=== PATIENT | female | born 1985 | race Caucasian/White ===

== ENCOUNTER 2024-09-27 19:22 | Inpatient (IN) | payer BC ==
--- NOTE | 2024-09-27 20:09 | RAD REPORT ---
EXAM: CT brain without contrast HISTORY: Blurred vision COMPARISON: None TECHNIQUE: Multiple contiguous axial images were obtained and a CT of the brain without contrast. Sagittal and coronal reformats were performed. Automated exposure control, adjustment of the mA and/or kV according to patient size, and/or itera tive reconstruction. Unless otherwise specified, incidental findings do not require dedicated imaging follow-u FINDINGS: An intracranial bleed is not seen Ventricles are normal caliber No extra-axial fluid collection noted Vague low density within the right and left occipital lobes. No fluid within the visualized sinuses or mastoids noted. IMPRESSION: Vague low density within the occipital lobes bilaterally. It is uncertain if these represent infarcti ons or artifact. MRI brain is recommended. from the emergency room was notified at 8:03 PM September 27, 2024
--- NOTE | 2024-09-27 20:47 | RAD REPORT ---
EXAMINATION: CTA HEAD CLINICAL INDICATION: Aphasia TECHNIQUE: Axial CT images were obtained through the head after 100 cc Isovue-370 intravenous contras t utilizing angiographic protocol with 3D post-processing (maximum intensity projection images, volume rendered images and/or shaded surface rendered images). One or more of the following dose red uction techniques were used: Automated exposure control, adjustment of the mA and/or kV according to patient size, and/or iterative reconstruction. Unless otherwise specified, incidental findings do not require dedicated imaging follow-up. COMPARISON: None FINDINGS: Distal internal carotid, basilar, anterior cerebral, middle cerebral and posterior cerebral arteries do not demonstrate a significant stenosis An aneurysm not noted. No large vessel occlusion IMPRESSION: No acute vascular abnormality displayed
[2024-09-27 20:48] LABS: Absolute Eosinophils 0.1 K/uL (0-0.5); Absolute Lymphocytes (CBC) 3.2 K/uL (0.7-4.9); Absolute Monocytes 0.6 K/uL (0.1-1.3); Absolute Neutrophil 5.5 K/uL (1.8-8.0); Basophils % 0.3 % (0-1.3); Eosinophils % 0.9 % (0-4.4); Hematocrit 33.3 % (36.0-45.0); Hemoglobin 10.6 g/dL (12.0-15.0); MCH 23.3 pg (27.0-35.0); MCHC 31.9 g/dL (32.0-36.0); MCV 72.9 fL (80-100); MPV 7.7 fL (7.6-11.3); Monocytes % 6.3 % (3.3-12.3); Neutrophils % 58.5 % (41.7-73.7); Platelets 366 thou/uL (152-406); RBC Red Blood Cell Count 4.57 M/uL (3.86-4.86)
--- NOTE | 2024-09-27 20:51 | RAD REPORT ---
EXAMINATION: Neck Angio CLINICAL INDICATION: aphasia TECHNIQUE: Axial CT images were obtained from the aortic arch to the skull base after intravenous adm inistration of 100 cc Isovue-370 utilizing angiographic protocol. Multiplanar reformats, as well as 3D post-processing (maximum intensity projection images, volume rendered images and/or shaded surface rendered images) were generated and reviewed. One or more of the following dose reduction techniques were used: Automated exposure control, adjustment of the mA and/or kV according to patient size, and/or iterative reconstruction. Unless otherwise specified, incidental findings do not require dedicated imaging follow-up. COMPARISON: No prior exam. FINDINGS: The visualized aortic arch and great vessels do not demonstrate a significant abnormality Common carotid, internal carotid and external carotid arteries bilaterally appear unremarkable. Vertebral arteries appear unremarkable No significant stenosis noted. A dissection is not seen. Methods for NASCET criteria: Mild stenosis, 0% to 49%; Moderate stenosis 50% to 69%; Severe stenosis, 70% to 99% IMPRESSION: No acute vascular abnormality displayed
[2024-09-27 21:00] LABS: PT Prothrombin Time 11.6 SECONDS (9.4-12.5); PTT, Activated Partial Thromb 26.4 SECONDS (24.3-36.9); Protime INR 1.04
[2024-09-27 21:07] LABS: Anion Gap 9.3 mEq/L (5.0-15.0); BUN Blood Urea Nitrogen 11 mg/dL (7-18); Bicarbonate 23 mEq/L (21-32); Glomerular Filtration Rate 115 ml/min (=/>90); Glucose Level 104 mg/dL (74-106); Potassium 3.3 mEq/L (3.5-5.1); Sodium Level 137 mEq/L (136-145)
--- NOTE | 2024-09-27 21:15 | RAD REPORT ---
Procedure: Chest Single View HISTORY: CVA COMPARISON: 2002 FINDINGS: The lungs appear clear of acute infiltrate. No significant pleural effusion noted. The heart is normal size. IMPRESSION: No acute abnormality is displayed.
[2024-09-27 21:46] LABS: Troponin High Sensitivity < 3.0 pg/mL (<58.9)
--- NOTE | 2024-09-27 22:29 | ER ---
Nurse's Notes [facility] Name: Iman Cunningham Age: 38 yrs Sex: Female : 1985 Arrival Date: 09/27/2024 Time: 19:22 Bed 14 Private MD: Diagnosis: Transient Ischemic Attack , acute aphasia, acute tunnel vision;Paresthesia of skin Presentation: 09/27 19:43 Chief complaint: Patient states: "Last night at work I started getting blurry tunnel vc1 vision, I could see straight ahead but my peripheral was blurry. I couldn't speak, I new what I was trying to say but the words wouldn't come out. Then my lips got tingly. Those went away but I have had a headache ever since. It gets worse if I cough or bend over. I still have to kind of think about what I am going to say". Coronavirus screen: Client denies travel out of the [place] in the last 14 days. At this time, the client does not indicate any symptoms associated with coronavirus-19. Ebola Screen: Patient negative for fever greater than or equal to 101.5 degrees Fahrenheit, and additional compatible Ebola Virus Disease symptoms Patient denies exposure to infectious person. Patient denies travel to an Ebola-affected area in the 21 days before illness onset. No symptoms or risks identified at this time. Initial Sepsis Screen: Does the patient meet any 2 criteria? No. Patient's initial sepsis screen is negative. Does the patient have a suspected source of infection? No. Patient's initial sepsis screen is negative. Risk Assessment: Do you want to hurt yourself or someone else? Patient reports no desire to harm self or others. Onset of symptoms was September 26, 2024. Care prior to arrival: None. Activity prior to arrival: None. Mechanism of Injury: No Mechanism of Injury. Transition of care: patient was not received from another setting of care. 19:43 Method Of Arrival: Ambulatory vc1 19:43 Acuity: KILEY 2 vc1 Triage Assessment: 19:49 Headache History: The patient has had previous headaches and this one is different than vc1 previous episodes, and this one is more severe than previous episodes. General: Appears in no apparent distress. comfortable, slender, well groomed, well developed, well nourished, Behavior is calm, cooperative, appropriate for age. Pain: Complains of pain in left temporal area Pain does not radiate. Pain currently is 3 out of 10 on a pain scale. at worst was 6 out of 10 on a pain scale. Quality of pain is described as pressure, Pain began suddenly, last night with blurred vision, tingling of lips and unable to speak Is lasting a few minutes. Also complains of inability to perform activities of daily living. EENT: No deficits noted. No signs and/or symptoms were reported regarding the EENT system. Neuro: Ham Agitation-Sedation Scale (RASS): 0 - Alert and Calm Level of Consciousness is awake, alert, obeys commands, Oriented to person, place, time, situation, Appropriate for age [employer] are equal bilaterally Moves all extremities. Gait is steady, Speech is normal, Facial symmetry appears normal, Pupils are PERRLA, Reports headache in left parietal area, since last night. Cardiovascular: Capillary refill < 3 seconds Patient's skin is warm and dry. Respiratory: Airway is patent Respiratory effort is even, unlabored, Respiratory pattern is regular, symmetrical. GI: Abdomen is flat, non-distended. : No deficits noted. No signs and/or symptoms were reported regarding the genitourinary system. Derm: Skin is intact, is healthy with good turgor, Skin is dry, Skin is normal, Skin temperature is warm. Musculoskeletal: Circulation, motion, and sensation intact. Range of motion: intact in all extremities. 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 - Infectious Disease History:: Denies. - Social history:: Smoking status: Patient denies any tobacco usage or history of. - Family history:: not pertinent. Screenin:49 [facility] ED Fall Risk Assessment (Adult) History of falling in the last 3 months, vc1 including since admission No falls in past 3 months (0 pts) Confusion or Disorientation No (0 pts) Intoxicated or Sedated No (0 pts) Impaired Gait No (0 pts) Mobility Assist Device Used No (0 pt) Altered Elimination No (0 pt) Score/Fall Risk Level 0 - 2 = Low Risk Oriented to surroundings, Maintained a safe environment, Educated pt \\T\\ family on fall prevention, incl call for assistance when getting out of bed. Abuse screen: Denies threats or abuse. Nutritional screening: No deficits noted. Tuberculosis screening: No symptoms or risk factors identified. Assessment: 19:30 VAN Scoring: Arm Drift: Patients demonstrates NO arm weakness. Patient is VAN Negative. jb4 Visual Disturbance: No visual disturbance noted. Bandon Swallow Protocol Exclusion Criteria: Exclusion Criteria Result: Proceed Brief Cognitive Screen What is your name? Normal, Where are you right now? Normal, What year is it? Normal. Oral Mechanism Examination Facial Symmetry: Normal, Motion: Normal, Lip Closure: Normal, Oral Mechanism Result: Normal. 3 oz Water Swallow Challenge: Pt able to drink all water without stopping, coughing, choking or throat clearing: Yes Result: PASS MD Notified: Santy Preston MD. General: Appears in no apparent distress. comfortable, Behavior is calm, cooperative, appropriate for age. Pain: Complains of pain in headache Pain does not radiate. Pain currently is 3 out of 10 on a pain scale. Neuro: Level of Consciousness is awake, alert, obeys commands, Oriented to person, place, time, situation, Moves all extremities. Full function Speech is normal, Facial symmetry appears normal, Pupils are PERRLA, Pt reports having to focus more than usual to try and say what she wants to say. Cardiovascular: Patient's skin is warm and dry. Respiratory: Airway is patent Respiratory effort is even, unlabored, Respiratory pattern is regular, symmetrical. Derm: Skin is intact, Skin is pink, warm \\T\\ dry. Musculoskeletal: Circulation, motion, and sensation intact. Range of motion: intact in all extremities. 20:30 Reassessment: Patient appears in no apparent distress at this time. Patient and/or jb4 family updated on plan of care and expected duration. Pain level reassessed. Patient is alert, oriented x 3, equal unlabored respirations, skin warm/dry/pink. 21:30 Reassessment: Patient appears in no apparent distress at this time. Patient and/or jb4 family updated on plan of care and expected duration. Pain level reassessed. Patient is alert, oriented x 3, equal unlabored respirations, skin warm/dry/pink. Pt reports the feeling of "Brain Fog" is getting better and it is getting easier to talk. 22:30 Reassessment: Patient appears in no apparent distress at this time. Patient and/or jb4 family updated on plan of care and expected duration. Pain level reassessed. Patient is alert, oriented x 3, equal unlabored respirations, skin warm/dry/pink. 23:24 Reassessment: Patient appears in no apparent distress at this time. Patient and/or jb4 family updated on plan of care and expected duration. Pain level reassessed. Patient is alert, oriented x 3, equal unlabored respirations, skin warm/dry/pink. Vital Signs: 19:43 BP 129 / 95; Pulse 108; Resp 14; Temp 99.2; Pulse Ox 100% ; Weight 51.26 kg; Height 5 vc1 ft. 0 in. ; Pain 3/10; 19:43 Body Mass Index 22.07 (51.26 kg, 152.4 cm) vc1 19:43 Pain Scale: Adult vc1 Orion Coma Score: 22:17 Eye Response: spontaneous(4). Motor Response: obeys commands(6). Verbal Response: sp4 oriented(5). Total: 15. 22:30 Eye Response: spontaneous(4). Motor Response: obeys commands(6). Verbal Response: sp4 oriented(5). Total: 15. NIH Stroke Scale Scores: 19:30 NIHSS Score: 0 jb4 22:17 NIHSS Score: 0 sp4 ED Course: 19:26 Patient arrived in ED. im 19:47 Evan Zamora, RN is Primary Nurse. jb4 19:47 Triage completed. vc1 19:49 Arm band placed on right wrist. vc1 19:53 Patient has correct armband on for positive identification. Bed in low position. Call vc1 light in reach. Pulse ox on. NIBP on. 19:58 CT Stroke Brain w/o Contrast In Process Unspecified. EDMS 20:04 Santy Preston MD is Attending Physician. sp4 20:08 Note: pt not escorted by nurse to CT, IV started by nail technician teacher. labs drawn by nail technician teacher at vm2 20:07. 20:14 CT Head Angio In Process Unspecified. EDMS 20:14 CT Neck Angio In Process Unspecified. EDMS 20:56 Stroke CXR 1 View In Process Unspecified. EDMS 22:28 Nikhil Ely MD is Hospitalizing Provider. sp4 09/28 03:15 Patient admitted, IV remains in place. rg5 03:16 Provided Education on: need for admit. rg5 03:16 No provider procedures requiring assistance completed. rg5 06:58 Primary Nurse role handed off by Evan Zamora, RN bp 06:58 Jone Prado, JARED is Primary Nurse. bp Administered Medications: No medications were administered Medication: 09/27 19:53 VIS not applicable for this client. vc1 Outcome: 22:28 Decision to Hospitalize by Provider. sp4 09/28 03:16 Admitted to ER Hold. [facility]. rg5 Condition: stable Instructed on the need for admit, 07:49 Patient left the ED. bp NIH Stroke Scale - NIH Stroke Score Date: 09/27/2024 Time: 19:30 Total Score = 0 10. Dysarthria (speech clarity - read or repeat words) - 0(Normal) 11. Extinction and Inattention (visual/tactile/auditory/spatial/personal) - 0(No abnormality) 1a. Level of Consciousness (LOC) - 0(Alert) 1b. Level of Consciousness (LOC) (Month \\T\\ Age) - 0(Both) 1c. LOC Commands (Open \\T\\ Closes Eyes/Residence Hall Director) - 0(Both) 2. Best Gaze (Lateral Gaze Paresis) - 0(Normal) 3. Visual Field Loss - 0(No visual loss) 4. Facial Palsy - 0(Normal) 5a. Left Arm: Motor (10-second hold) - 0(No drift) 5b. Right Arm: Motor (10-second hold) - 0(No drift) 6a. Left Leg: Motor (5-second hold - always test supine) - 0(No drift) 6b. Right Leg: Motor (5-second hold - always test supine) - 0(No drift) 7. Limb Ataxia (finger/nose \\T\\ heel/bates - test with eyes open) - 0(Absent) 8. Sensory Loss (pinprick arms/legs/face) - 0(Normal) 9. Best Language: Aphasia (description/naming/reading) - 0(No aphasia) Initials: [email or web address] NIH Stroke Scale - NIH Stroke Score Date: 09/27/2024 Time: 22:17 Total Score = 0 10. Dysarthria (speech clarity - read or repeat words) - 0(Normal) 11. Extinction and Inattention (visual/tactile/auditory/spatial/personal) - 0(No abnormality) 1a. Level of Consciousness (LOC) - 0(Alert) 1b. Level of Consciousness (LOC) (Month \\T\\ Age) - 0(Both) 1c. LOC Commands (Open \\T\\ Closes Eyes/Residence Hall Director) - 0(Both) 2. Best Gaze (Lateral Gaze Paresis) - 0(Normal) 3. Visual Field Loss - 0(No visual loss) 4. Facial Palsy - 0(Normal) 5a. Left Arm: Motor (10-second hold) - 0(No drift) 5b. Right Arm: Motor (10-second hold) - 0(No drift) 6a. Left Leg: Motor (5-second hold - always test supine) - 0(No drift) 6b. Right Leg: Motor (5-second hold - always test supine) - 0(No drift) 7. Limb Ataxia (finger/nose \\T\\ heel/bates - test with eyes open) - 0(Absent) 8. Sensory Loss (pinprick arms/legs/face) - 0(Normal) 9. Best Language: Aphasia (description/naming/reading) - 0(No aphasia) Initials: sp4 Signatures: Dispatcher [employer] EDEvan Rivera, RN RN jb4 Caterina Ovalles 2 Jone Prado, RN RN bp Nancie Davis RN RN vc1 Santy Preston MD MD sp4 Audra Bynum Rommel, RN RN rg5
--- NOTE | 2024-09-27 22:30 | EDPHYS ---
Physician Documentation [facility] Name: Iman Cunningham Age: 38 yrs Sex: Female : 1985 Arrival Date: 09/27/2024 Time: 19:22 Bed 14 Private MD: ED Physician Santy Preston HPI: 09/27 20:04 This 38 yrs old Female presents to ER via Ambulatory with complaints of mini sp4 stroke, Headache. 22:18 38-year-old female presents with acute onset of tunnel vision, and reported aphasia sp4 last night 9:46 PM, also difficulty getting her words out. Reported as well paresthesias around the lips. At this time also reported brain fog. Patient reports she cannot think clearly. This has never happened in the past. Patient does not have any history of medical problems has history of 4 C-sections history of bilateral tubal ligation 3 years ago. Currently not on control not on any dietary supplement. . 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 - Infectious Disease History:: Denies. - Social history:: Smoking status: Patient denies any tobacco usage or history of. - Family history:: not pertinent. ROS: 22:18 Constitutional: Negative for fever, chills, and weight loss, positive for episode of sp4 aphasia, tunnel vision, positive for brain fog, positive for paresthesias. 22:18 All other systems are negative, Exam: 22:17 Constitutional: This is a well developed, well nourished patient who is awake, alert, sp4 and in no acute distress. Head/Face: Normocephalic, atraumatic. Eyes: Pupils equal round and reactive to light, extra-ocular motions intact. Lids and lashes normal. Conjunctiva and sclera are not injected. Cornea within normal limits. Periorbital areas with no swelling, redness, or edema. ENT: Nares patent. No nasal discharge, no septal abnormalities noted. Tympanic membranes are normal and external auditory canals are clear. Oropharynx with no redness, swelling, or masses, exudates, or evidence of obstruction, uvula midline. Mucous membranes moist. Neck: Trachea midline, no thyromegaly or masses palpated, and no cervical lymphadenopathy. Supple, full range of motion without nuchal rigidity, or vertebral point tenderness. Chest/axilla: Normal chest wall appearance and motion. Nontender with no deformity. No lesions are appreciated. Cardiovascular: Regular rate and rhythm with a normal S1 and S2. No gallops, murmurs, or rubs. Normal PMI, no JVD. No pulse deficits. Respiratory: Lungs have equal breath sounds bilaterally, clear to auscultation and percussion. No rales, rhonchi or wheezes noted. No increased work of breathing, no retractions or nasal flaring. Abdomen/GI: Soft, with normal bowel sounds. No distension or tympany. No guarding or rebound. No evidence of tenderness throughout. Back: No spinal tenderness. No costovertebral tenderness. Skin: Warm, dry with normal turgor. Normal color with no rashes, no lesions, and no evidence of cellulitis. MS/ Extremity: Pulses equal, no cyanosis. Neurovascular intact. Full, normal range of motion. Neuro: Awake and alert, GCS 15, oriented to person, place, time, and situation. Cranial nerves II-XII grossly intact. Motor strength 5/5 in all extremities. Sensory grossly intact. Psych: Awake, alert, with orientation to person, place and time. Behavior, mood, and affect are within normal limits 22:18 ECG was reviewed by the Attending Physician. EKG 2039 normal sinus rhythm, normal EKG sp4 Vital Signs: 19:43 BP 129 / 95; Pulse 108; Resp 14; Temp 99.2; Pulse Ox 100% ; Weight 51.26 kg; Height 5 vc1 ft. 0 in. ; Pain 3/10; 19:43 Body Mass Index 22.07 (51.26 kg, 152.4 cm) vc1 19:43 Pain Scale: Adult vc1 NIH Stroke Scale Scores: 19:30 NIHSS Score: 0 jb4 22:17 NIHSS Score: 0 sp4 Orion Coma Score: 22:17 Eye Response: spontaneous(4). Motor Response: obeys commands(6). Verbal Response: sp4 oriented(5). Total: 15. 22:30 Eye Response: spontaneous(4). Motor Response: obeys commands(6). Verbal Response: sp4 oriented(5). Total: 15. MDM: 20:06 Medical Screening Exam initiated sp4 22:30 Differential diagnosis: cluster headache, cerebral vascular accident, migraine, sp4 subdural hematoma, tension headache, vasomotor headache. Data reviewed: vital signs, nurses notes, old medical records, lab test result(s), EKG, radiologic studies. Consideration of Admission/Observation Patient was admitted/placed on observation. Escalation of care including admission/observation considered. Management of patient was discussed with the following: Hospitalist: Solis MATTHEWS . 3Rd Mate: Terri MATTHEWS . ED course: Procedure: Chest Single View HISTORY: CVA COMPARISON: 2002 FINDINGS: The lungs appear clear of acute infiltrate. No significant pleural effusion noted. The heart is normal size. IMPRESSION: No acute abnormality is displayed.. ED course: EXAM: CT brain without contrast HISTORY: Blurred vision COMPARISON: None TECHNIQUE: Multiple contiguous axial images were obtained and a CT of the brain without contrast. Sagittal and coronal reformats were performed. Automated exposure control, adjustment of the mA and/or kV according to patient size, and/or iterative reconstruction. Unless otherwise specified, incidental findings do not require dedicated imaging follow-u FINDINGS: An intracranial bleed is not seen Ventricles are normal caliber No extra-axial fluid collection noted Vague low density within the right and left occipital lobes. No fluid within the visualized sinuses or mastoids noted. IMPRESSION: Vague low density within the occipital lobes bilaterally. It is uncertain if these represent infarctions or artifact. MRI brain is recommended. from the emergency room was notified at 8:03 PM September 27, 2024. ED course: CT angio - EXAMINATION: Neck Angio CLINICAL INDICATION: aphasia TECHNIQUE: Axial CT images were obtained from the aortic arch to the skull base after intravenous administration of 100 cc Isovue-370 utilizing angiographic protocol. Multiplanar reformats, as well as 3D post-processing (maximum intensity projection images, volume rendered images and/or shaded surface rendered images) were generated and reviewed. One or more of the following dose reduction techniques were used: Automated exposure control, adjustment of the mA and/or kV according to patient size, and/or iterative reconstruction. Unless otherwise specified, incidental findings do not require dedicated imaging follow-up. COMPARISON: No prior exam. FINDINGS: The visualized aortic arch and great vessels do not demonstrate a significant abnormality Common carotid, internal carotid and external carotid arteries bilaterally appear unremarkable. Vertebral arteries appear unremarkable No significant stenosis noted. A dissection is not seen.. ED course: EXAMINATION: CTA HEAD CLINICAL INDICATION: Aphasia TECHNIQUE: Axial CT images were obtained through the head after 100 cc Isovue-370 intravenous contrast utilizing angiographic protocol with 3D post-processing (maximum intensity projection images, volume rendered images and/or shaded surface rendered images). One or more of the following dose reduction techniques were used: Automated exposure control, adjustment of the mA and/or kV according to patient size, and/or iterative reconstruction. Unless otherwise specified, incidental findings do not require dedicated imaging follow-up. COMPARISON: None FINDINGS: Distal internal carotid, basilar, anterior cerebral, middle cerebral and posterior cerebral arteries do not demonstrate a significant stenosis An aneurysm not noted. No large vessel occlusion IMPRESSION: No acute vascular abnormality displayed. 09/27 19:47 Order name: Basic Metabolic Panel; Complete Time: 22:09 09/27 19:47 Order name: CBC with Diff; Complete Time: 21:40 09/27 19:47 Order name: High Sensitivity Troponin; Complete Time: 22:09 09/27 19:47 Order name: Protime (+inr); Complete Time: 21:40 09/27 19:47 Order name: Ptt, Activated; Complete Time: 21:40 09/27 19:47 Order name: Test, Urine 09/27 19:47 Order name: Urinalysis w/ reflexes 09/27 19:58 Order name: Glucose, Ancillary Testing; Complete Time: 21:40 [facility] 09/27 23:02 Order name: Anti-Thrombin III Activity [facility]MO 09/27 23:02 Order name: C-ANCA Anti-Proteinase 3 EDMO 09/27 23:02 Order name: Factor V Leiden Mutation [facility]MO 09/27 23:02 Order name: Homocysteine EDMO 09/27 23:02 Order name: P-ANCA Anti-Myeloperoxidase Ab [facility] 09/27 23:02 Order name: Protein C Antigen EDMO 09/27 23:02 Order name: Protein Electo w/M Naif Serum [facility]MO 09/27 23:02 Order name: Protein S (Total [facility]MO 09/27 23:02 Order name: PROTHROMBIN GENE ANALYSIS (F2) [facility]MO 09/27 23:02 Order name: RPR; Complete Time: 07:01 [facility] 09/27 23:02 Order name: Vitamin B12 Level; Complete Time: 02:21 [facility] 09/27 23:02 Order name: Vitamin D, 25 ([place]), TOTAL; Complete Time: 07:01 [facility] 09/28 01:40 Order name: ANTIPHOSPHOLIPID AB PANEL [facility] 09/27 19:47 Order name: CT Head Angio; Complete Time: 21:40 rn 09/27 19:47 Order name: CT Neck Angio; Complete Time: 21:40 rn 09/27 19:47 Order name: CT Stroke Brain w/o Contrast; Complete Time: 21:40 rn 09/27 19:47 Order name: Stroke CXR 1 View; Complete Time: 21:40 09/27 23:02 Order name: Echo with Doppler [facility] 09/28 00:55 Order name: Brain Wo Cont [facility] 09/27 23:02 Order name: IRF Screen [facility] 09/27 23:02 Order name: Physical Therapy Consult [facility] 09/27 23:02 Order name: Speech Therapy Consult [facility] 09/27 23:02 Order name: EKG Electrocardiogram [facility] 09/27 19:47 Order name: Accucheck; Complete Time: 20:21 09/27 19:47 Order name: Cardiac monitoring; Complete Time: 20:21 09/27 19:47 Order name: EKG - Nurse/Tech; Complete Time: 20:54 09/27 19:47 Order name: IV Saline Lock; Complete Time: 20:21 09/27 19:47 Order name: Labs collected and sent; Complete Time: 20:21 09/27 19:47 Order name: NPO; Complete Time: 20:21 09/27 19:47 Order name: O2 Per Protocol; Complete Time: 20:21 09/27 19:47 Order name: O2 Sat Monitoring; Complete Time: 20:21 09/27 19:47 Order name: Stroke Swallow Screen; Complete Time: 20:54 rn EC:39 Rate is 91 beats/min. Rhythm is regular, Normal Sinus Rhythm. QRS [place] is Normal. [place] sp4 interval is normal. QRS interval is normal. QT interval is normal. No Q waves. T waves are Normal. No ST changes noted. Clinical impression: Normal ECG. Interpreted by me. Reviewed by me. Administered Medications: No medications were administered Disposition Summary: 09/27/24 22:28 Hospitalization Ordered Notes: Hospitalization Status: Observation sp4 Provider: Nikhil Ely sp4 Condition: Stable sp4 Problem: new sp4 Symptoms: have improved sp4 Bed/Room Type: Standard sp4 Location: Telemetry/MedSurg (observation)(09/28/24 06:40) Room Assignment: 416(09/28/24 06:40) Diagnosis - Transient Ischemic Attack , acute aphasia, acute tunnel vision sp4 - Paresthesia of skin sp4 Forms: - Medication Reconciliation Form sp4 - SBAR form sp4 - Leadership Thank You Letter sp4 NIH Stroke Scale - NIH Stroke Score Date: 09/27/2024 Time: 19:30 Total Score = 0 10. Dysarthria (speech clarity - read or repeat words) - 0(Normal) 11. Extinction and Inattention (visual/tactile/auditory/spatial/personal) - 0(No abnormality) 1a. Level of Consciousness (LOC) - 0(Alert) 1b. Level of Consciousness (LOC) (Month \T\ Age) - 0(Both) 1c. LOC Commands (Open \T\ Closes Eyes/Job Change Crew Member) - 0(Both) 2. Best Gaze (Lateral Gaze Paresis) - 0(Normal) 3. Visual Field Loss - 0(No visual loss) 4. Facial Palsy - 0(Normal) 5a. Left Arm: Motor (10-second hold) - 0(No drift) 5b. Right Arm: Motor (10-second hold) - 0(No drift) 6a. Left Leg: Motor (5-second hold - always test supine) - 0(No drift) 6b. Right Leg: Motor (5-second hold - always test supine) - 0(No drift) 7. Limb Ataxia (finger/nose \T\ heel/bates - test with eyes open) - 0(Absent) 8. Sensory Loss (pinprick arms/legs/face) - 0(Normal) 9. Best Language: Aphasia (description/naming/reading) - 0(No aphasia) Initials: jb4 NIH Stroke Scale - NIH Stroke Score Date: 09/27/2024 Time: 22:17 Total Score = 0 10. Dysarthria (speech clarity - read or repeat words) - 0(Normal) 11. Extinction and Inattention (visual/tactile/auditory/spatial/personal) - 0(No abnormality) 1a. Level of Consciousness (LOC) - 0(Alert) 1b. Level of Consciousness (LOC) (Month \T\ Age) - 0(Both) 1c. LOC Commands (Open \T\ Closes Eyes/Job Change Crew Member) - 0(Both) 2. Best Gaze (Lateral Gaze Paresis) - 0(Normal) 3. Visual Field Loss - 0(No visual loss) 4. Facial Palsy - 0(Normal) 5a. Left Arm: Motor (10-second hold) - 0(No drift) 5b. Right Arm: Motor (10-second hold) - 0(No drift) 6a. Left Leg: Motor (5-second hold - always test supine) - 0(No drift) 6b. Right Leg: Motor (5-second hold - always test supine) - 0(No drift) 7. Limb Ataxia (finger/nose \T\ heel/bates - test with eyes open) - 0(Absent) 8. Sensory Loss (pinprick arms/legs/face) - 0(Normal) 9. Best Language: Aphasia (description/naming/reading) - 0(No aphasia) Initials: sp4 Signatures: Dispatcher [employer] EDLeah Peralta RN RN kl Nieto, Roman, MD MD rn Calcote, Vanessa, RN RN vc1 Iman Ortega rv1 Santy Preston MD MD sp4 Corrections: (The following items were deleted from the chart) 19:47 19:47 BASIC METABOLIC PANEL+C.LAB.BRZ ordered. EDMS EDMS 19:47 19:47 CBC+H.LAB.BRZ ordered. EDMS EDMS 19:47 19:47 Troponin High Sensitivity+C.LAB.BRZ ordered. EDMS EDMS 19:47 19:47 PROTIME (+INR)+COAG.LAB.BRZ ordered. EDMS EDMS 19:47 19:47 PTT, ACTIVATED+COAG.LAB.BRZ ordered. EDMS EDMS 19:47 19:47 Head Angio+CT.RAD.BRZ ordered. EDMS EDMS 19:47 19:47 Neck Angio+CT.RAD.BRZ ordered. EDMS EDMS 19:47 19:47 CT-STROKE BRAIN W/O CONTRAST+CT.RAD.BRZ ordered. EDMS EDMS 19:48 19:48 Chest Single View+RAD.RAD.BRZ ordered. EDMS EDMS 19:48 19:48 Test, Urine+UC.LAB.BRZ ordered. EDMS EDMS 19:48 19:48 Urinalysis+U.LAB.BRZ ordered. EDMS EDMS 22:45 22:28 Telemetry/MedSurg (observation) sp4 rv1 22:45 22:28 sp4 rv1 23:10 23:02 Chest Pa And Lat (2 Views) ordered. EDMS EDMS 09/28 00:37 09/27 23:02 Miscellaneous Test Lab ordered. EDMS EDMS 09/28 00:38 09/27 23:02 Cardiolipin Antibodies G,M ordered. EDMS EDMS 09/28 01:40 00:38 ANTIPHOSPHOLIPID AB PANEL ordered. EDMS EDMS 06:40 09/27 22:45 BR ER HOLD rv1 kl 09/28 06:40 09/27 22:45 ERHOLD- rv1 kl
--- NOTE | 2024-09-27 22:51 | P.HP ---
Certification for Inpatient Patient admitted to: Inpatient With expected LOS: >2 Midnights Practitioner: I am a practitioner with admitting privileges, knowledge of patient current condition, hospital course, and medical plan of care. Services: Services provided to patient in accordance with Admission requirements found in Title 42 Section 412.3 of the Code of Federal Regulations Patient History Date of Service: 09/28/24 Reason for admission: Headache, visual problems History of Present Illness: 38 yrs old Female with no significant past medical history brought to ER with complaints of tunnel vision and speech issues which started yesterday. Denies any focal weakness. She started having acute onset of tunnel vision, and reported aphasia last night 9:46 PM, also difficulty getting her words out. Reported as well paresthesias around the lips. At this time also reported brain fog. Patient reports she cannot think clearly. This has never happened in the past. Patient does not have any history of medical problems has history of 4 C- sections history of bilateral tubal ligation 3 years ago. Currently not on control not on any dietary supplement. No previous history of factor V Leiden or any coagulation disorder, patient denies any history of atrial fibrillation. Denies any chest pain or shortness of breath. Patient was assessed in the ER and was was admitted for further management of possible CVA Allergies aspirin Allergy (Unverified 03/21/15 07:28) Unknown Home medications list reviewed: Yes - Past Medical/Surgical History Past Medical History: Reviewed- Non-Contributory Past Surgical History: Reviewed- Non-Contributory - Family History Family History: Reviewed- Non-Contributory - Social History Smoking Status: Never smoker Review of Systems 10-point ROS is otherwise unremarkable Physical Examination - Vital Signs Temperature: 97.2 F Blood Pressure: 128/72 Pulse: 76 Respirations: 18 Pulse Ox (%): 94 - Physical Exam General: Alert, In no apparent distress, Oriented x3 HEENT: Atraumatic, Normocephalic Neck: Supple, 2+ carotid pulse no bruit Respiratory: Clear to auscultation bilaterally, Normal air movement Cardiovascular: No edema, Regular rate/rhythm, Normal S1 S2 Capillary refill: <2 Seconds Gastrointestinal: Soft and benign, W/out hepatosplenomegaly Musculoskeletal: No clubbing, No swelling Integumentary: No rashes Neurological: Normal speech, Normal strength at 5/5 x4 extr, Cranial nerves 3-12 intact, Normal reflexes 2+, Normal affect Lymphatics: No axilla or inguinal lymphadenopathy - Studies Laboratory Data (last 24 hrs) 09/27/24 09/27/24 09/27/24 20:02 20:02 20:02 WBC 9.40 Hgb 10.6 L Hct 33.3 L Plt Count 366 PT 11.6 INR 1.04 APTT 26.4 Sodium 137 Potassium 3.3 L BUN 11 Creatinine 0.67 Glucose 104 Assessment and Plan - Plan CVA/TIA No focal weakness Started on aspirin and statin CT CTA findings noted MRI brain ordered Monitor neuro vital signs Monitor under telemetry Neurology consulted Coagulation profile Will get an echocardiogram Hypokalemia Potassium supplementation GI/DVT prophylaxis Advanced directive full code Discharge Plan: Home Plan to discharge in: 48 Hours - Advance Directives Does patient have a Living Will: No Does patient have a Durable POA for Healthcare: No - Code Status/Comfort Care Code Status: Full Code Time Spent Managing Pts Care (In Minutes): 48
[2024-09-28] MEDS ORDERED: NA CHLORIDE 0.9% 1,000 ML ONE (02:20)
[2024-09-28] MEDS: NA CHLORIDE 0.9% 1,000 ML IV SCH (02:30)
[2024-09-28 02:59] VITALS: BMI 22.0
[2024-09-28 05:08] LABS: RPR (Rapid Plasma Reagin) NON-REACT (NON-REACT)
--- NOTE | 2024-09-28 07:15 | P.PN ---
Date of Service: 09/28/24 Subjective: ROS: 10 point ROS as noted above, otherwise negative Physical Exam: GEN: Alert, NAD, orientedx3 CV: Regular rate and rhythm, no edema Pulm: Nonlabored respirations on room air, clear bilaterally ABD: soft, nontender, nondistended Neuro: Normal strength, normal affect Problem List: Suspected CVA/TIA Hypokalemia Suspected CVA/TIA On admission, presents with tunnel vision, aphasia, difficulty getting words out, parasthesias around lips. +headache Denies any focal weakness. No prior episodes. No chest pain/SOB. CT head (09/27): Vague low density within the occipital lobes bilaterally. Infarction vs artifact CTA head/neck, CXR negative for any acute findings. MRI brain ordered to further eval Echo ordered to eval EF / stenosis Dr. Murray, Neuro consulted Monitor on telemetry Neurochecks q6h Start asa, statin continue IVF Hypokalemia monitor and replete as needed VTE: SCD Code: Full Dispo: Home Pending MRI, neuro recs Time Spent Managing Pts Care (In Minutes): 55
[2024-09-28] MEDS: FLU (Fluarix Triv) TS24-25(6MOS UP)/PF 45 MCG/0.5 ML Syringe IM ONE (07:30)
[2024-09-28 07:58] VITALS: O2SAT 100
[2024-09-28] MEDS: ASPIRIN EC 81 MG TAB PO SCH (09:00)
[2024-09-28 13:04] VITALS: TEMP 98.7
[2024-09-28 16:52] VITALS: BP 104/66
--- NOTE | 2024-09-28 18:53 | RAD REPORT ---
EXAMINATION: MRI BRAIN WITHOUT CONTRAST CLINICAL INDICATION: Female, 38 years old. CVA TECHNIQUE: Multiplanar multisequence MR images of the brain were obtained without intravenous contras t. Unless otherwise specified, incidental findings do not require dedicated imaging follow-up. COMPARISON: CT and CT angiogram of the neck . FINDINGS: INTRACRANIAL: Midline structures are unremarkable. Diffusion-weighted images show no acute or early subacute infarction. No abnormal brain parenchymal signal. The ventricles are normal in size and morphology. No augmented susceptibility signal abnormality. There is no mass effect or midline shift. No abnormal extraaxial fluid collection. VASCULATURE: Normal signal voids in the larger intracranial arteries and dural venous sinuses. SINUSES: The paranasal sinuses and mastoid air cells are predominantly clear. BONE: The marrow signal pattern is within normal limits. IMPRESSION: No significant intracranial abnormalities.
[2024-09-28] MEDS: ATORVASTATIN 40 MG TAB PO SCH (21:00)
--- NOTE | 2024-09-29 06:33 | P.DS ---
Admission Date: 09/28/24 Discharge Date: 09/28/24 Disposition: ROUTINE DISCHARGE Discharge Condition: GOOD Reason for Admission: Headache, visual problems Consultations: Neurology - Dr. Murray Brief History of Present Illness: 38 yrs old Female with no significant past medical history brought to ER with complaints of tunnel vision and speech issues which started yesterday. Denies any focal weakness. She started having acute onset of tunnel vision, and reported aphasia last night 9:46 PM, also difficulty getting her words out. Reported as well paresthesias around the lips. At this time also reported brain fog. Patient reports she cannot think clearly. This has never happened in the past. Patient does not have any history of medical problems has history of 4 C- sections history of bilateral tubal ligation 3 years ago. Currently not on control not on any dietary supplement. No previous history of factor V Leiden or any coagulation disorder, patient denies any history of atrial fib rillation. Denies any chest pain or shortness of breath. Patient was assessed in the ER and was was admitted for further management of possible CVA Hospital Course: Problem List: Suspected TIA Mild Microcytic anemia Hypokalemia, improved Physician discharge instructions: Patient presented with tunnel vision, expressive aphasia/ difficulty getting words out secondary to possible TIA (transient ischemic attack) CT head noted vague low density within the occipital lobes bilaterally concerning for possible infarct vs artifact. CTA head/neck, CXR negative for any acute findings. MRI brain done 09/28 - no acute abnormalities seen. no evidence of infarct. Dr. Murray, neurology was consulted, recommended medical management with aspirin, and statin and to follow up in his office in next few weeks for further management. Echocardiogram done 09/27 and reportedly normal however pending official read. Can discuss echo results with Dr. Murray or PCP at follow up appointment. Patient was feeling better / back to her normal self, eating/swallowing without issues, ambulating, speaking without issue and was deemed stable for discharge. Uncertain on exact etiology of her symptoms. No evidence of stroke, no arrhythmia's noted, no significant electrolyte / lab abnormality noted. Discussed other possibilities on differential diagnosis that can be further worked up / evaluated on an outpatient basis when following up with neurology. Given the uncertainty, and general risk if a TIA. Dr. Murray recommended to continue treatment for possible TIA with aspirin and statin. On admission she did undergo hypercoagulation studies as part of stroke evaluation, results pending at time of discharge. Recommend follow up with PCP or Neurology for final results, which may take several more days. Medications: aspirin and statin Follow up: PCP 3-5 days Neurology 2-4 weeks Please call to schedule / confirm appointments Of note, but not discussed directly with patient. She was found to have mild anemia, microcytic. Suspect a component of iron deficiency. Recommend follow up with PCP for further evaluation. Physical Exam: GEN: Alert, NAD, orientedx3 CV: Regular rate and rhythm, no edema Pulm: Nonlabored respirations on room air, clear bilaterally ABD: soft, nontender, nondistended Neuro: Normal strength, normal affect Vital Signs/Physical Exam: Temp Pulse Resp BP Pulse Ox 98.7 F 91 H 18 104/66 99 09/28/24 20:00 09/28/24 20:00 09/28/24 20:00 09/28/24 20:00 09/28/24 20:00 Laboratory Data at Discharge: WBC 9.40 thou/uL (4.3-10.9) 09/27/24 20:02 Hgb 10.6 g/dL (12.0-15.0) L 09/27/24 20:02 Hct 33.3 % (36.0-45.0) L 09/27/24 20:02 Plt Count 366 thou/uL (152-406) 09/27/24 20:02 PT 11.6 SECONDS (9.4-12.5) 09/27/24 20:02 INR 1.04 09/27/24 20:02 APTT 26.4 SECONDS (24.3-36.9) 09/27/24 20:02 Sodium 137 mEq/L (136-145) 09/27/24 20:02 Potassium 3.3 mEq/L (3.5-5.1) L 09/27/24 20:02 BUN 11 mg/dL (7-18) 09/27/24 20:02 Creatinine 0.67 mg/dL (0.55-1.02) 09/27/24 20:02 Glucose 104 mg/dL (74-106) 09/27/24 20:02 Triglycerides 58 mg/dL (<150) 09/28/24 14:39 Cholesterol 171 mg/dL (<200) 09/28/24 14:39 HDL Cholesterol 48 mg/dL (40-60) 09/28/24 14:39 Cholesterol/HDL Ratio 3.56 09/28/24 14:39 Home Medications: Aspirin [Aspirin EC 81 MG] 81 mg PO DAILY 30 Days #30 tab 09/28/24 Atorvastatin Calcium [Lipitor] 40 mg PO BEDTIME 30 Days #30 tab 09/28/24 New Medications: Aspirin [Aspirin EC 81 MG] 81 mg PO DAILY 30 Days #30 tab Atorvastatin Calcium [Lipitor] 40 mg PO BEDTIME 30 Days #30 tab Physician Discharge Instructions: Physician discharge instructions: Patient presented with tunnel vision, expressive aphasia/ difficulty getting words out secondary to possible TIA (transient ischemic attack) CT head noted vague low density within the occipital lobes bilaterally concerning for possible infarct vs artifact. CTA head/neck, CXR negative for any acute findings. MRI brain done 09/28 - no acute abnormalities seen. no evidence of infarct. Dr. Murray, neurology was consulted, recommended medical management with aspirin, and statin and to follow up in his office in next few weeks for further management. Echocardiogram done 09/27 and reportedly normal however pending official read. Can discuss echo results with Dr. Murray or PCP at follow up appointment. Patient was feeling better / back to her normal self, eating/swallowing without issues, ambulating, speaking without issue and was deemed stable for discharge. Uncertain on exact etiology of her symptoms. No evidence of stroke, no arrhythmia's noted, no significant electrolyte / lab abnormality noted. Discussed other possibilities on differential diagnosis that can be further worked up / evaluated on an outpatient basis when following up with neurology. Given the uncertainty, and general risk if a TIA. Dr. Murray recommended to continue treatment for possible TIA with aspirin and statin. On admission she did undergo hypercoagulation studies as part of stroke evaluation, results pending at time of discharge. Recommend follow up with PCP or Neurology for final results, which may take several more days. Medications: aspirin and statin Follow up: PCP 3-5 days Neurology 2-4 weeks Please call to schedule / confirm appointments Of note, but not discussed directly with patient. She was found to have mild anemia, microcytic. Suspect a component of iron deficiency. Recommend follow up with PCP for further evaluation. Followup: OOT,OOT [Primary Care Provider] - Time spent managing pt's care (in minutes): 45
--- NOTE | 2024-09-29 11:30 | EKG ---
Test Date: 2024-09-27 Test Time: 20:39:18 Officer Lieutenant: PETE MEASUREMENT RESULTS: Intervals: Rate: 91 [place]: 142 QRSD: 70 QT: 366 QTc: 450 [place]: P: 69 [place]: 142 QRS: 68 T: 41 INTERPRETIVE STATEMENTS: Normal sinus rhythm Normal ECG Compared to ECG 03/21/2015 04:21:52 Sinus tachycardia no longer present Electronically Signed On 09-29-24 11:27:56 [employer] by Michele Baldwin
--- NOTE | 2024-09-29 12:06 | ECHO ---
HEIGHT: 5 ft 0 in WEIGHT: 113 lb 0 oz DATE OF STUDY: 09/28/[address]: Jesus Ely DO 2-DIMENSIONAL: YES M.MODE: YES DOPPLER: YES COLOR FLOW: YES TDS: NO PORTABLE: YES DEFINITY: NO BUBBLE STUDY: NO DIAGNOSIS: STROKE CARDIAC HISTORY: CATHERIZATION: NO SURGERY: NO PROSTHETIC VALVE: NO PACEMAKER: NO MEASUREMENTS (cm) DIASTOLIC (NORMALS) SYSTOLIC (NORMALS) IVSd 0.9 (0.6-1.2) LA Diam 2.0 (1.9-4.0) LVEF 60-65% LVIDd 3.7 (3.5-5.7) LVIDs 2.6 (2.0-3.5) %FS 29% LVPWd 0.8 (0.6-1.2) Ao Diam 2.4 (2.0-3.7) 2 DIMENSIONAL ASSESSMENT: RIGHT ATRIUM: NORMAL LEFT ATRIUM: NORMAL RIGHT VENTRICLE: NORMAL LEFT VENTRICLE: NORMAL TRICUSPID VALVE: NORMAL MITRAL VALVE: NORMAL PULMONIC VALVE: NORMAL AORTIC VALVE: NORMAL PERICARDIAL EFFUSION: NONE AORTIC ROOT: NORMAL LEFT VENTRICULAR WALL MOTION: NORMAL. DOPPLER/COLOR FLOW: NORMAL. COMMENTS: 1. NORMAL LEFT VENTRICULAR SYSTOLIC FUNCTION. LEFT VENTRICULAR EJECTION FRACTION 60-65%, NORMAL WALL MOTION. 2. NORMAL DIASTOLIC FUNCTION. TECHNOLOGIST: JERRI HAJI
[2024-10-01 04:42] LABS: C-ANCA Anti-Proteinase 3 <1.0 AI (<1.0); P-ANCA Anti-Myeloperoxidase Ab <1.0 AI (<1.0)
[2024-10-01 19:39] LABS: Anti-Thrombin III Activity 133 % normal (80-135)
[2024-10-03 13:03] LABS: Protein C Antigen 93 % normal (70-140)
[2024-10-03 15:40] LABS: Abnormal Protein Band 1 REPORT; Alpha-1-Globulins 0.2 g/dL (0.2-0.3); Alpha-2-Globulins 0.8 g/dL (0.5-0.9); Beta 1 Globulin 0.4 g/dL (0.4-0.6); INTERPRETATION REPORT; Total Protein 6.8 g/dL (6.1-8.1)
[2024-10-03 21:32] LABS: Anti-Cardiolipin IgG Antibody <2.0 GPL-U/mL (<20.0); Anti-Cardiolipin IgM Antibody <2.0 MPL-U/mL (<20.0); Beta-2-Glycoprotein I IgA <2.0 U/mL (<20.0); Beta-2-Glycoprotein I IgG <2.0 U/mL (<20.0); Beta-2-Glycoprotein I IgM <2.0 U/mL (<20.0); Homocysteine 7.5 umol/L (<10.4); Phosphatidylser & Prothrom IgG <9 U (<=30); Phosphatidylser & Prothrom IgM 11 U (<=30)
[2024-10-05 15:53] LABS: Factor V (Leiden) Interp REPORT; Factor V (Leiden) Result NEGATIVE
[2024-10-06 19:28] LABS: PGA INTERPRETATION REPORT; Prothrombin Gene Analysis Test NEGATIVE
== END 2024-09-28 21:00 | disposition home or self-care (01) | DRG 69 ==
LOC: ER 19:22 → ERHOLD 09-28 02:28 → 4TH 09-28 07:07
PROVIDERS: ADMIT Family Medicine; ATTEND Hospitalist
DX: G45.9 Transient cerebral ischemic attack, unspecified (principal); R47.01 Aphasia; E87.6 Hypokalemia; D50.9 Iron deficiency anemia, unspecified; R20.2 Paresthesia of skin; R51.9 Headache, unspecified; R29.700 NIHSS score 0; Z88.5 Allergy status to narcotic agent; Z88.6 Allergy status to analgesic agent; Z98.51 Tubal ligation status; Z79.82 Long term (current) use of aspirin; Z79.899 Other long term (current) drug therapy
CPT/HCPCS: 36415; 70450; 70496; 70498; 70551; 71045; 80048; 80061; 81240; 81241; 82306; 82607; 82947; 83090; 84165; 84484; 85025; 85300; 85302; 85305; 85306; 85610; 85730; 86021; 86592; 86593; 92610; 93005; 93306; 97161; 99285; G0378; J7030; Q9967